=== PATIENT | female | born 1995 ===

== ENCOUNTER 2018-12-01 11:14 | Outpatient (CLI) | payer OTHER ==
[~2018-12-01] VITALS: Ht 152.4 cm; Wt 56.7 kg
== END 2018-12-01 11:30 | disposition home or self-care (01) ==
LOC: OFIC 805 11:14
DX: J03.91 Acute recurrent tonsillitis, unspecified (principal)

== ENCOUNTER 2018-12-15 08:06 | Outpatient (CLI) | payer OTHER ==
[~2018-12-15] VITALS: Ht 152.4 cm; Wt 56.7 kg
== END 2018-12-15 08:20 | disposition home or self-care (01) ==
LOC: OFIC 805 08:06
DX: J03.81 Acute recurrent tonsillitis due to other specified organisms (principal)